=== PATIENT | female | born 1960 | race American Indian/Alaskan Native ===

== ENCOUNTER 2019-05-05 18:56 | Emergency (ER) | payer SELFPAY ==
--- NOTE | 2019-05-05 19:35 | Event Note ---
ED Screening Note ED Screening Note: n/v that began two days ago states she is having difficulty tolerating PO intake no diarrhea + body aches +fever possible sick contacts PMHx HTN, HLD, anxiety no allergies to meds This initial assessment/diagnostic orders/clinical plan/treatment(s) is/are subject to change based on patients health status, clinical progression and re- assessment by fellow clinical providers in the ED. Further treatment and workup at subsequent clinical providers discretion. Patient/guardian urged not to elope from the ED as their condition may be serious if not clinically assessed and managed. Initial orders include: labs, flu swab
[2019-05-05 21:14] LABS: Basophils % (Auto) 0.4 % (0.0-1.8); Hematocrit 40.9 % (30.3-42.9); Hemoglobin 14.6 gm/dl (10.1-14.3); Lymphocytes # (Auto) 0.5 K/mm3 (1.2-5.4); Mean Corpuscular HGB Conc 36 % (30-34); Mean Corpuscular Volume 90 fl (79-97); Monocytes # (Auto) 0.5 K/mm3 (0.0-0.8); Monocytes % (Auto) 9.1 % (0.0-7.3); Platelet Count 187 K/mm3 (140-440); Red Blood Count 4.53 M/mm3 (3.65-5.03); Red Cell Distribution Width 12.3 % (13.2-15.2)
[2019-05-05] MEDS ORDERED: ONDANSETRON 4 MG/2 ML INJ IV ONE (21:47)
[2019-05-05] MEDS ORDERED: FAMOTIDINE 20 MG/2 ML INJ IV ONE (21:47)
[2019-05-05] MEDS ORDERED: SODIUM CHLORIDE 0.9% 1000 ML 1,000 ML IV ONE (21:47)
--- NOTE | 2019-05-05 21:53 | Emergency Department Report ---
HPI - General Chief Complaint: Nausea/Vomiting/Diarrhea Time Seen by Provider: 05/05/19 19:32 - HPI HPI: Room 45 The patient is a 58-year-old female presenting with a chief complaint of nausea vomiting and diarrhea. Patient states his symptoms began the morning of 05/02/2019 with nausea vomiting and diarrhea. The patient states the diarrhea has resolved but she continues to have nausea vomiting to the point where she is dry heaving currently. Patient states she's been unable to keep anything down mild. Patient states she began to feel dizzy and had a low-grade fever (99F). Patient states she feels dehydrated. Patient complains of soreness in the left upper quadrant and right upper quadrant from frequent dry heaving. Location: [See above] Duration: [See above] Quality: [See above] Severity: [See above] Timing: [See above] Context: [See above] Modifying factors: [See above] Associated signs and symptoms: [see above] ED Past Medical Hx - Past Medical History Previous Medical History?: Yes Hx Hypertension: Yes Additional medical history: Elevated Cholesterol - Surgical History Past Surgical History?: Yes Additional Surgical History: Rhinoplasty, Hysterectomy, Right hand surgery - Family History Family history: no significant - Social History Smoking Status: Never Smoker Substance Use Type: None (denies illicit drug use) - Medications Home Medications: Home Medications Medication Instructions Recorded Confirmed Last Taken Type Famotidine [Pepcid] 20 mg PO BID #20 tablet 05/06/19 Unknown Rx HYDROcodone/APAP 5-325 [[place] 1 - 2 each PO Q6HR PRN #10 tablet 05/06/19 Unknown Rx 5/325] Ondansetron [Zofran ODT TAB] 8 mg PO Q8HR #20 tab.rapdis 05/06/19 Unknown Rx Promethazine [Phenergan] 25 mg MN Q6HR PRN #5 supp.rect 05/06/19 Unknown Rx ED Review of Systems ROS: Stated complaint: N/V WEAKNESS,FLU LIKE SX Other details as noted in HPI Constitutional: fever ("fever" 99F) Eyes: denies: eye pain ENT: denies: throat pain Respiratory: no symptoms reported Cardiovascular: denies: chest pain Endocrine: no symptoms reported Gastrointestinal: abdominal pain, nausea, vomiting, diarrhea Genitourinary: denies: dysuria Musculoskeletal: denies: back pain Neurological: denies: headache Physical Exam - Physical Exam Vital Signs: Vital Signs 05/05/19 05/05/19 19:20 19:32 Temperature 99.2 F 99.2 F Pulse Rate 88 94 H Respiratory 18 18 Rate Blood Pressure 138/74 138/74 O2 Sat by Pulse 99 99 Oximetry Physical Exam: GENERAL: The patient is well-developed well-nourished female lying on chair not appearing to be in acute distress. [] HEENT: Normocephalic. Atraumatic. Extraocular motions are intact. Patient has moist mucous membranes. NECK: Supple. Trachea midline CHEST/LUNGS: Clear to auscultation. There is no respiratory distress noted. HEART/CARDIOVASCULAR: Regular. There is no tachycardia. There is no gallop rub or murmur. ABDOMEN: Abdomen is soft, with mild soreness to palpation in the right upper quadrant and left upper quadrant. There is no rebound or guarding. Patient has normal bowel sounds. There is no abdominal distention. SKIN: There is no rash. There is no edema. There is no diaphoresis. NEURO: The patient is awake, alert, and oriented. The patient is cooperative. The patient has normal speech MUSCULOSKELETAL: There is no evidence of acute injury. ED Course Vital Signs 05/05/19 05/05/19 19:20 19:32 Temperature 99.2 F 99.2 F Pulse Rate 88 94 H Respiratory 18 18 Rate Blood Pressure 138/74 138/74 O2 Sat by Pulse 99 99 Oximetry ED Medical Decision Making - Lab Data Result diagrams: 05/05/19 20:39 05/05/19 20:39 Laboratory Tests 05/05/19 05/05/19 05/05/19 19:35 20:39 20:39 WBC 6.0 RBC 4.53 Hgb 14.6 H Hct 40.9 MCV 90 MCH 32 MCHC 36 H RDW 12.3 L Plt Count 187 Lymph % (Auto) 9.0 L Dent % (Auto) 9.1 H Eos % (Auto) 0.0 Baso % (Auto) 0.4 Lymph # 0.5 L Dent # 0.5 Eos # 0.0 Baso # 0.0 Seg Neutrophils % 81.5 H Seg Neutrophils # 4.9 Sodium 138 Potassium 4.3 Chloride 99.6 Carbon Dioxide 18 L Anion Gap 25 BUN 8 Creatinine 0.7 Estimated GFR > 60 BUN/Creatinine Ratio 11 Glucose 99 Calcium 9.7 Total Bilirubin 1.80 H AST 22 ALT 17 Alkaline Phosphatase 79 Total Protein 7.1 Albumin 4.6 Albumin/Globulin Ratio 1.8 Lipase Influenza A (Rapid) Negative Influenza B (Rapid) Negative 05/05/19 20:39 WBC RBC Hgb Hct MCV MCH MCHC RDW Plt Count Lymph % (Auto) Dent % (Auto) Eos % (Auto) Baso % (Auto) Lymph # Dent # Eos # Baso # Seg Neutrophils % Seg Neutrophils # Sodium Potassium Chloride Carbon Dioxide Anion Gap BUN Creatinine Estimated GFR BUN/Creatinine Ratio Glucose Calcium Total Bilirubin AST ALT Alkaline Phosphatase Total Protein Albumin Albumin/Globulin Ratio Lipase 18 Influenza A (Rapid) Influenza B (Rapid) - Radiology Data Radiology results: report reviewed (right upper quadrant ultrasound), image reviewed (right upper quadrant ultrasound) [facility] [address] [place] [address] Ultrasound Report Signed Patient: BORA WHITAKER MR#: [id number] : 1960 Acct:[id number] Age/Sex: 58 / F ADM Date: 05/05/19 Loc: ED Attending Dr: Ordering Physician: FRANCI COURTNEY MD Date of Service: 05/05/19 Procedure(s): US abdomen limited Accession Number(s): [id number] cc: FRANCI COURTNEY MD ULTRASOUND ABDOMEN, LIMITED (RIGHT UPPER QUADRANT) INDICATION: Abdominal pain with nausea and vomiting for 4 days. COMPARISON: None available. FINDINGS: PANCREAS: Visualized portion shows no significant abnormality. LIVER: No significant abnormality. GALLBLADDER: No significant abnormality. BILE DUCTS: No significant abnormality. Common bile duct measures 1 mm. FREE FLUID: None. ADDITIONAL FINDINGS: Images the right kidney are normal. IMPRESSION: No significant sonographic abnormality of the right upper quadrant. Signer Name: Dhruv Allen MD Signed: 05/06/2019 1:10 AM Workstation Name: [id number] Transcribed By: RT Dictated By: Dhruv Allen MD Electronically Authenticated By: Dhruv Allen MD Signed Date/Time: 05/06/19109 DD/ 7 TD/TT: - Differential Diagnosis gastroenteritis, gastritis, Critical care attestation.: If time is entered above; I have spent that time in minutes in the direct care of this critically ill patient, excluding procedure time. ED Disposition Clinical Impression: Acute gastroenteritis, Total bilirubin, elevated Disposition: DC-01 TO HOME OR SELFCARE Is pt being admited?: No Does the pt Need Aspirin: No Condition: Stable Instructions: Gastroenteritis (ED), Acute Nausea and Vomiting (ED) Additional Instructions: Return to the emergency department should you develop worsening symptoms, inability to tolerate food or liquids, high fever or any other concerns Prescriptions: HYDROcodone/APAP 5-325 [[place] 5/325] 1 - 2 each PO Q6HR PRN #10 tablet PRN Reason: Pain Famotidine [Pepcid] 20 mg PO BID #20 tablet Promethazine [Phenergan] 25 mg MN Q6HR PRN #5 supp.rect PRN Reason: Vomiting Ondansetron [Zofran ODT TAB] 8 mg PO Q8HR #20 tab.rapdis Referrals: PRIMARY CARE, [Primary Care Provider] - 3-5 Days JULIÁN BOWMAN MD [Staff Physician] - 3-5 Days (Dr. Bowman is a brass and wind instrument repairer. Please follow up with him for further evaluation) Time of Disposition: 01:22
[2019-05-05 22:12] LABS: Alanine Aminotransferase 17 units/L (7-56); Albumin 4.6 g/dL (3.9-5); BUN/Creatinine Ratio 11; Blood Urea Nitrogen 8 mg/dL (7-17); Calcium 9.7 mg/dL (8.4-10.2); Hemolysis Index 42
--- NOTE | 2019-05-06 01:14 | Ultrasound Report ---
ULTRASOUND ABDOMEN, LIMITED (RIGHT UPPER QUADRANT) INDICATION: Abdominal pain with nausea and vomiting for 4 days. COMPARISON: None available. FINDINGS: PANCREAS: Visualized portion shows no significant abnormality. LIVER: No significant abnormality. GALLBLADDER: No significant abnormality. BILE DUCTS: No significant abnormality. Common bile duct measures 1 mm. FREE FLUID: None. ADDITIONAL FINDINGS: Images the right kidney are normal. IMPRESSION: No significant sonographic abnormality of the right upper quadrant. Signer Name: Dhruv Allen MD Signed: 05/06/2019 1:10 AM Workstation Name: [id number]
[2019-05-06] MEDS ORDERED: ONDANSETRON 4 MG ODT TAB ONE (01:56)
[2019-05-06 01:58] VITALS: BP 121/75
[2019-05-06] MEDS ORDERED: ONDANSETRON 4 MG ODT TAB PO ONE (01:58)
== END 2019-05-06 01:58 | disposition home or self-care (01) ==
LOC: ED 18:56
DX: K21.9 Gastro-esophageal reflux disease without esophagitis (principal); R17 Unspecified jaundice; I10 Essential (primary) hypertension; E78.00 Pure hypercholesterolemia, unspecified; Z90.710 Acquired absence of both cervix and uterus; Z98.890 Other specified postprocedural states
CPT/HCPCS: 36415; 76705; 80053; 83690; 85025; 87400; 96361; 96374; 96375; 99284; J2405; J7030; Q0162

== ENCOUNTER 2019-05-07 13:54 | Emergency (ER) | payer SELFPAY ==
[2019-05-07 15:44] VITALS: BP 108/71
--- NOTE | 2019-05-07 15:45 | Event Note ---
ED Screening Note ED Screening Note: states she was able to tolerate PO intake yesterday states that she had a fever did not take anything for it states she still has a cough was just here recently, states she is not getting better This initial assessment/diagnostic orders/clinical plan/treatment(s) is/are subject to change based on patients health status, clinical progression and re- assessment by fellow clinical providers in the ED. Further treatment and workup at subsequent clinical providers discretion. Patient/guardian urged not to elope from the ED as their condition may be serious if not clinically assessed and managed. Initial orders include: labs, UA, CXR
--- NOTE | 2019-05-07 16:24 | XRay Report ---
CHEST 2 VIEWS INDICATION / CLINICAL INFORMATION: cough, fever. COMPARISON: None available. FINDINGS: SUPPORT DEVICES: None. HEART / MEDIASTINUM: No significant abnormality. LUNGS / PLEURA: No significant pulmonary or pleural abnormality. No pneumothorax. ADDITIONAL FINDINGS: No significant additional findings. IMPRESSION: 1. No acute findings. Signer Name: Harvey Garcia MD Signed: 05/07/2019 4:20 PM Workstation Name: [id number]
[2019-05-07 17:10] LABS: Bilirubin,Urine NEG (Negative); Blood,Urine SM (Negative); Color,Urine Yellow (Yellow); Mucus,Urine 1+ /HPF; Protein,Urine <15 mg/dL mg/dL (Negative); Urobilinogen,Urine < 2.0 mg/dL (<2.0)
--- NOTE | 2019-05-07 18:18 | Emergency Department Report ---
ED General Adult HPI - General Chief complaint: Nausea/Vomiting/Diarrhea Stated complaint: NAUSEA/VOMITING Time Seen by Provider: 05/07/19 15:43 Source: patient Mode of arrival: Ambulatory Limitations: No Limitations - History of Present Illness Initial comments: states she was able to tolerate PO intake yesterday states that she had a fever did not take anything for it states she still has a cough Did not take anything for it was just here recently, states she is not getting better Onset/Timin -: days(s) Severity scale (0 -10): 4 Consistency: intermittent Associated Symptoms: cough, nausea/vomiting Treatments Prior to Arrival: none - Related Data Previous Rx's Medication Instructions Recorded Last Taken Type Famotidine [Pepcid] 20 mg PO BID #20 tablet 05/06/19 Unknown Rx HYDROcodone/APAP 5-325 [[place] 1 - 2 each PO Q6HR PRN #10 tablet 05/06/19 Unknown Rx 5/325] Ondansetron [Zofran ODT TAB] 8 mg PO Q8HR #20 tab.rapdis 05/06/19 Unknown Rx Promethazine [Phenergan] 25 mg AR Q6HR PRN #5 supp.rect 05/06/19 Unknown Rx Allergies Allergy/AdvReac Type Severity Reaction Status Date / Time No Known Allergies Allergy Unverified 05/05/19 19:26 ED Review of Systems ROS: Stated complaint: NAUSEA/VOMITING Other details as noted in HPI Comment: All other systems reviewed and negative ED Past Medical Hx - Past Medical History Hx Hypertension: Yes Additional medical history: Elevated Cholesterol - Surgical History Additional Surgical History: Rhinoplasty, Hysterectomy, Right hand surgery - Social History Smoking Status: Never Smoker Substance Use Type: None - Medications Home Medications: Home Medications Medication Instructions Recorded Confirmed Last Taken Type Famotidine [Pepcid] 20 mg PO BID #20 tablet 05/06/19 Unknown Rx HYDROcodone/APAP 5-325 [[place] 1 - 2 each PO Q6HR PRN #10 tablet 05/06/19 Unknown Rx 5/325] Ondansetron [Zofran ODT TAB] 8 mg PO Q8HR #20 tab.rapdis 05/06/19 Unknown Rx Promethazine [Phenergan] 25 mg AR Q6HR PRN #5 supp.rect 05/06/19 Unknown Rx ED Physical Exam - General Limitations: No Limitations General appearance: alert, in no apparent distress - Head Head exam: Present: atraumatic, normocephalic - Eye Eye exam: Present: normal appearance - ENT ENT exam: Present: mucous membranes moist - Neck Neck exam: Present: normal inspection - Respiratory Respiratory exam: Present: normal lung sounds bilaterally. Absent: respiratory distress - Cardiovascular Cardiovascular Exam: Present: regular rate, normal rhythm. Absent: systolic murmur, diastolic murmur, rubs, gallop - GI/Abdominal GI/Abdominal exam: Present: soft, normal bowel sounds - Extremities Exam Extremities exam: Present: normal inspection - Back Exam Back exam: Present: normal inspection - Neurological Exam Neurological exam: Present: alert, oriented X3 - Psychiatric Psychiatric exam: Present: normal affect, normal mood - Skin Skin exam: Present: warm, dry, intact, normal color. Absent: rash ED Course Vital Signs 05/07/19 14:06 Temperature 98.2 F Pulse Rate 78 Respiratory 16 Rate Blood Pressure 108/71 O2 Sat by Pulse 98 Oximetry ED Medical Decision Making - Lab Data Result diagrams: 05/07/19 17:54 05/07/19 17:54 - Medical Decision Making states she was able to tolerate PO intake yesterday states that she had a fever did not take anything for it states she still has a cough Did not take anything for it was just here recently, states she is not getting better Patient was seen here on 05/06/2019 labs were done ultrasound done. Labs have been ordered. To be stable. Patient was given Zofran and by mouth challenge. Critical care attestation.: If time is entered above; I have spent that time in minutes in the direct care of this critically ill patient, excluding procedure time. ED Disposition Clinical Impression: Acute gastroenteritis, Cough Disposition: DC-01 TO HOME OR SELFCARE Is pt being admited?: No Does the pt Need Aspirin: No Condition: Stable Additional Instructions: Continue with medications that was prescribed here on the . Patient can get [id number] Robitussin for cough. Take [id number] Tylenol or ibuprofen as needed for fever and pain. Increase her fluid intake eventually diet as tolerated. Follow-up with a primary care provider.
[2019-05-07 18:35] LABS: Basophils % (Auto) 0.3 % (0.0-1.8); Hemoglobin 13.7 gm/dl (10.1-14.3); Lymphocytes # (Auto) 0.7 K/mm3 (1.2-5.4); Lymphocytes % (Auto) 15.7 % (13.4-35.0); Mean Corpuscular HGB Conc 34 % (30-34); Mean Corpuscular Volume 92 fl (79-97); Monocytes # (Auto) 0.5 K/mm3 (0.0-0.8); Monocytes % (Auto) 10.4 % (0.0-7.3); Platelet Count 154 K/mm3 (140-440); Red Blood Count 4.36 M/mm3 (3.65-5.03); Red Cell Distribution Width 12.5 % (13.2-15.2)
[2019-05-07 19:19] LABS: Albumin 3.9 g/dL (3.9-5); BUN/Creatinine Ratio 10; Blood Urea Nitrogen 8 mg/dL (7-17); Hemolysis Index 115
[2019-05-07] MEDS ORDERED: ONDANSETRON 4 MG ODT TAB PO ONE (19:27)
[2019-05-07 19:31] LABS: Alanine Aminotransferase 16 units/L (7-56)
[2019-05-07] MEDS ORDERED: BENZONATATE 100 MG CAP PO ONE (20:00)
== END 2019-05-07 20:55 | disposition home or self-care (01) ==
LOC: ED 13:54
DX: K52.9 Noninfective gastroenteritis and colitis, unspecified (principal); R05 Cough; I10 Essential (primary) hypertension; Z90.710 Acquired absence of both cervix and uterus; Z79.899 Other long term (current) drug therapy
CPT/HCPCS: 36415; 71046; 80053; 81001; 85025; Q0162